=== PATIENT | male | born 1985 | race Caucasian/White ===

== ENCOUNTER → 2021-05-13 | Outpatient (CLI) | payer BC | LOC: RAD 09:04 | DX: R05.9 Cough, unspecified (principal); R06.02 Shortness of breath; R91.8 Other nonspecific abnormal finding of lung field | CPT/HCPCS: 71046 ==

== ENCOUNTER → 2021-06-30 | Outpatient (CLI) | payer BC | LOC: HEART 5 14:35 | DX: R06.02 Shortness of breath (principal) | CPT/HCPCS: 94010 ==

== ENCOUNTER → 2021-11-15 | Outpatient (CLI) | payer BC | LOC: CT 10:55 | DX: E11.9 Type 2 diabetes mellitus without complications (principal); R10.31 Right lower quadrant pain | CPT/HCPCS: 36415; 82565; 84520; Q9967 ==